=== PATIENT | female | born 1970 ===

== ENCOUNTER → 2021-01-06 | Outpatient (CLI) | payer OTHER | END | disposition home or self-care (01) | LOC: STAR 09:28 | PROVIDERS: ATTEND Surgery | DX: Z01.812 Encounter for preprocedural laboratory examination (principal); Z20.822 Contact with and (suspected) exposure to COVID-19; C50.411 Malignant neoplasm of upper-outer quadrant of right female breast; D48.62 Neoplasm of uncertain behavior of left breast ==